=== PATIENT | male | born 1955 | race Caucasian/White ===

== ENCOUNTER → 2019-01-05 | Outpatient (CLI) | payer OTHER ==
--- NOTE | 2019-01-05 17:19 | REP ---
Abdominal aorta ultrasound: Abdominal Aortic Measurements are as follows: Proximal 2.6 cm AP 2.4 cm TRV Renal Artery Level 1.7 cm AP 2.0 cm TRV Mid Aorta 1.6 cm AP 1.3 cm TRV Distal Aorta 1.3 cm AP 1.5 cm TRV R Iliac Artery 0.8 a cm AP 1.0 cm TRV L Iliac Artery 0.6 cm AP 1.1 cm TRV Impression: There is no abdominal aortic aneurysm. Electronically Signed by Eloy Santamaria MD 01/05/2019 05:11 P
== END ==
LOC: M RAD 15:55
PROVIDERS: ATTEND Family Medicine
DX: I71.4 Abdominal aortic aneurysm, without rupture (principal)

== ENCOUNTER → 2022-07-24 | Outpatient (CLI) | payer MEDICARE, OTHER | LOC: M PLAIMG 10:38 | PROVIDERS: ATTEND Internal Medicine Pulmonary Disease | DX: R91.8 Other nonspecific abnormal finding of lung field (principal) ==

== ENCOUNTER → 2023-01-27 | Outpatient (REF) | payer MEDICARE, OTHER | LOC: M LAB REF 16:10 | PROVIDERS: ATTEND Physician Assistant Medical | DX: L02.211 Cutaneous abscess of abdominal wall (principal) ==

== ENCOUNTER → 2023-10-14 | Outpatient (CLI) | payer OTHER, MEDICARE | LOC: M RAD 07:40 | PROVIDERS: ATTEND Internal Medicine Pulmonary Disease | DX: R91.8 Other nonspecific abnormal finding of lung field (principal) ==

== ENCOUNTER 2024-01-19 10:03 | Day surgery (SDC) | payer MEDICARE, OTHER ==
[~2024-01-19] VITALS: Ht 180.3 cm; Wt 103.6 kg
[~2024-01-19 10:03] MED LIST: AMLO10TA PO; CALC600T86 PO; CARV12.5 PO; CIDA500T2 PO; COQ150CH PO; CURC500C PO; ECOT81TA5 PO; GALZ25CA PO; NS 250 ML IV ONE; OMEGCAP9 PO; ROSU10TA61 PO; SPIR50TA4 PO; THERTAB52 PO; VITA100093 PO; VITA500C24 PO
[2024-01-19] MEDS ORDERED: propofoL 200 MG/20 ML VIAL As Ordered ONE (11:26)
[2024-01-19] MEDS ORDERED: LIDOCAINE 2% 100MG/5ML SDV (FOR ANES.) As Ordered ONE (11:26)
[2024-01-19] MEDS ORDERED: GLYCOPYRROLATE INJ 0.2 MG/ML 2 ML VIAL As Ordered ONE (11:26)
[2024-01-19 12:37] VITALS: BP 153/81; O2SAT 94
== END 2024-01-19 12:36 | disposition home or self-care (01) ==
LOC: M OPP 10:03
PROVIDERS: ATTEND Internal Medicine Gastroenterology
DX: Z12.11 Encounter for screening for malignant neoplasm of colon (principal); K64.0 First degree hemorrhoids; K57.30 Diverticulosis of large intestine without perforation or abscess without bleeding; K22.89 Other specified disease of esophagus; K44.9 Diaphragmatic hernia without obstruction or gangrene; I10 Essential (primary) hypertension; E78.5 Hyperlipidemia, unspecified; M19.90 Unspecified osteoarthritis, unspecified site; Z79.899 Other long term (current) drug therapy
CPT/HCPCS: 43239; 88305; G0121; J1596